=== PATIENT | female | born 1925 | race Caucasian/White ===

== ENCOUNTER 2016-07-09 08:39 | Inpatient (IN) | payer MEDICARE ==
--- NOTE | ~2016-07-09 | DS ---
Discharge Summary [facility] [address] [place]. [address] NAME: KYLEE DE PAZ : [birth year] STATUS : DIS IN PAT#: [id number] AGE: 89 ADM/REG DATE : 07/09/16 MR#: [id number] REPORT SERV DATE: 07/14/16 DICTATED BY: DATE: REPORT STATUS : Draft TRANSCRIBED BY: MODL DATE: 07/12/16 ADMISSION DATE: 07/09/2016 DISCHARGE DATE: 07/12/2016 The patient was admitted to the [facility]. Attendings, Dr. Vlad aMrtin and Gregory Choi. DISCHARGE DIAGNOSES: 1. Ischemic colitis. 2. Urinary tract infection prior to admission, status post eight days of antibiotic treatment (four days of Macrodantin, four days of ciprofloxacin and Flagyl.) No growth on cultures. 3. Generalized weakness. 4. Dementia with some increase in symptoms related to acute illness and hospitalization. 5. Hypertension. 6. Wwt-asdgvgf-ceszqepfq diabetes mellitus type 2-diet controlled. 7. Gastroesophageal reflux disease. 8. Hearing loss. 9. Acute kidney injury on chronic kidney disease, stage 2, resolved. IMAGING AND DIAGNOSTICS: 1. CT of the abdomen and pelvis on 07/09 for abdominal pain and loose stools shows acute left colitis from the splenic flexure to the rectosigmoid colon. Ischemia in the DARRELL territory may be present. A single focus of extraluminal gas versus a diverticular gas bubble present adjacent to the sigmoid colon at the level of the left adnexa. Moderate aortoiliac atherosclerosis. 2. AP and upright abdominal films on 07/10 for abdominal pain shows nonspecific gas pattern and no free air. 3. Mesenteric Doppler on 07/10, no Doppler evidence of mesenteric ischemia. PERTINENT LABORATORIES: White blood cell count on admission was 12.6, 11 at the time of discharge. Creatinine at admission 1.9, 1.1 at discharge. Hemoglobin 10.7, lactic acid level 1.2. Urinalysis showing large blood, large leukocyte esterase, nitrite positive with greater than 182 white blood cells, but only occasional bacteria. Subsequent urine culture; 30,000 colony-forming units of mixed GPC and GNR. Blood cultures x2 negative. Initial procalcitonin 16, repeat procalcitonin 1.6. BRIEF HISTORY: For full details, please see the previously dictated history of present illness by Dr. Ernie Rivers. Briefly, this is an 89-year-old lady with an acute onset of diarrhea, nausea, vomiting on 07/08. She recently had been started on Macrodantin as an outpatient for a suspected UTI. This was initiated clinically as a telephone order, but no urinalysis or culture had been obtained at that point. They attributed the symptoms to her Macrodantin as she has had intolerance of multiple antibiotics in the past. However, her diarrhea persisted after her Macrodantin had been stopped, and she began complaining of abdominal pain, and had one episode of bloody diarrhea. The family brought Discharge Summary [address] [place]. [address] NAME: KYLEE DE PAZ : [birth year] STATUS : DIS IN PAT#: [id number] AGE: 89 ADM/REG DATE : 07/09/16 MR#: [id number] REPORT SERV DATE: 07/14/16 DICTATED BY: DATE: REPORT STATUS : Draft TRANSCRIBED BY: MODL DATE: 07/12/16 her to the emergency department for evaluation. She had not had any fevers or chills, consumed any unusual foods, traveled, or had any sick contacts. She had no history of C. diff. In the emergency department, white blood cell count was noted to be 12.6 with a normal lactic acid level. Creatinine was elevated at 1.9 on prior baseline of 1.1. CT of the abdomen and pelvis revealed an acute left-sided colitis from the splenic flexure to the rectosigmoid colon suggesting potential mesenteric ischemia in the DARRELL territory. Admission was requested of the Hospitalist Service for further evaluation and stabilization. HOSPITAL COURSE: The patient was placed on IV fluids, IV antiemetics, allowed a clear liquid diet, which was slowly advanced. She was placed on empiric Levaquin and Flagyl. Mesenteric ultrasound as well as KUB were negative. The patient had no recurrence of hematochezia or diarrhea during the hospitalization. Her nausea and vomiting resolved within the first day, and she was tolerating a regular diet without recurrence of abdominal pain. A repeat urinalysis was obtained, pertinent for significant blood, leukocyte esterase, nitrites, white blood cells, but only occasional bacteria. Subsequent culture demonstrated 30,000 colony-forming units of mixed leta suggestive of contamination. Her blood cultures were negative x2 and procalcitonin down trended during the admission. She was kept on Levaquin and Flagyl for possible ischemic colitis and bacterial translocation for four days during the hospitalization and then her antibiotics were discontinued. She remained stable with no fever or recurrence of symptoms and no up trend in her white blood cell count. The antibiotics were discontinued at the request of the family who stated that they felt they were contributing to increased confusion. The patient was at her mental baseline at the time of discharge, and as it was discussed with family, she has no ongoing current indication for antibiotics having received eight days total of antibiotics for possible urinary tract infection, although the diagnosis could not be clearly made as her Macrodantin was initiated without a urinalysis or culture, and her culture here did not grow a significant amount of bacteria. She did not have any symptoms suggestive of an active urinary tract infection at the time of discharge, although it was difficult to elucidate given her baseline significant dementia. The patient was found to be generally weak during the admission, but was evaluated by Physical therapy and felt appropriate for discharge to home as she has 24/7 caregiver and equipment there. Family was in agreement with wanting to take her home rather than pursue the idea of correction facility or rehab placement. They were instructed to follow up close closely with Dr. Josef Ball within the next one to two weeks and to call his office sooner if the patient develops any fever, nausea, vomiting, abdominal pain, or recurrence of bloody diarrhea. The importance of limiting antibiotics and avoiding polypharmacy in this older patient were reviewed with family as well. They also expressed an interest in completing a [id number] order with Dr. Ball at Discharge [address] [address] NAME: KYLEE DE PAZ : [birth year] STATUS : DIS IN PAT#: [id number] AGE: 89 ADM/REG DATE : 07/09/16 MR#: [id number] REPORT SERV DATE: 07/14/16 DICTATED BY: DATE: REPORT STATUS : Draft TRANSCRIBED BY: ENRIQUE DATE: 07/12/16 followup. DISCHARGE MEDICATIONS: Include: 1. Aspirin 500 mg p.o. daily. 2. Vitamin D3 at 1000 international units p.o. daily. 3. Aricept 10 mg p.o. at bedtime. 4. Magnesium oxide 400 mg p.o. daily. 5. Zinc one tablet p.o. daily. 6. Amlodipine 5 mg p.o. daily. Thirty five minutes was spent in completion of the discharge. IRAM/ENRIQUE Gregory Choi M.D. / [id number] CC: Alma Vasquez M.D.
--- NOTE | ~2016-07-09 | HP ---
History And Physical [facility] [address] [facility] [place]. [address] NAME: KYLEE DE PAZ : [birth year] STATUS : ADM IN PAT#: [id number] AGE: 89 ADM/REG DATE : 07/09/16 MR#: [id number] REPORT SERV DATE: 07/10/16 DICTATED BY: VLAD MARTIN DATE: 07/09/16 REPORT STATUS : Draft TRANSCRIBED BY: MODL DATE: 07/09/16 DATE OF ADMISSION: 07/09/2016 CHIEF COMPLAINT: Bloody bowel movement and abdominal pain. HISTORY OF PRESENT ILLNESS: This is an 89-year-old lady with history of diverticulitis, diabetes, hypertension, chronic kidney disease, and coronary artery disease, presenting with an abdominal pain and bloody bowel movement. The patient was apparently doing fine up until yesterday around noon, when she started having acute onset of diarrhea. The patient also had a little bit of nausea and vomiting. As patient was having diarrhea, the patient started complaining of abdominal pain, and the patient started having bloody diarrhea. The patient's diarrhea actually stopped fairly soon after but the patient continued to complain of abdominal pain. The family decided to bring her to the ER in the morning. The patient has not had any obvious fevers or chills. The patient has been on antibiotics recently for urinary tract infection, namely Macrobid. The patient otherwise has not had any unusual food consumption. The patient has not had any traveling or any sick contacts. The patient does not have a history of C. diff. In the ER, the patient was found to be afebrile and hemodynamically stable. Initial lab evaluation was actually all very benign. The patient's white blood cell count was 12.6. The patient's lactate was 1.2. CT of the abdomen and pelvis revealed an acute left-sided colitis from splenic flexure to the rectosigmoid colon suggesting potential ischemia in the DARRELL territory. There was a single focus of extraluminal gas versus a diverticular gas bubble present adjacent to the sigmoid colon at the level of left adnexa. Internal Medicine consultation was requested for admission of the patient for further evaluation and care. REVIEW OF SYSTEMS: The patient denies any fevers or chills. Also, 14-point review of systems reviewed and negative other than mentioned above. MEDICATIONS: 1. Norvasc 5 mg p.o. daily. 2. Holli Aspirin 500 mg p.o. daily. 3. Vitamin D3 1000 units p.o. daily. 4. Aricept 10 mg p.o. at bedtime. 5. Mag-Ox 400 mg p.o. daily. 6. Macrobid 100 mg p.o. b.i.d. x7 days. 7. Zinc 1 tablet p.o. daily. ALLERGIES: 1. ALBUMIN. 2. INFLUENZA VIRUS VACCINE. 3. FAMILY REPORTS THAT THE PATIENT IS ALSO ALLERGIC TO LEVAQUIN BUT NOT CIPRO. PAST MEDICAL HISTORY: History And Physical [address] [address] NAME: KYLEE DE PAZ : [birth year] STATUS : ADM IN [facility]#: [id number] AGE: 89 ADM/REG DATE : 07/09/16 MR#: [id number] REPORT SERV DATE: 07/10/16 DICTATED BY: VLAD MARTIN DATE: 07/09/16 REPORT STATUS : Draft TRANSCRIBED BY: ENRIQUE DATE: 07/09/16 1. Diverticulitis. 2. Chronic kidney disease. 3. Diabetes type 2. 4. Hypertension. 5. GERD. 6. Mild dementia. 7. Coronary artery disease. PAST SURGICAL HISTORY: Three-vessel CABG several years ago. FAMILY HISTORY: Negative. SOCIAL HISTORY: The patient does not smoke, drink alcohol, or use any illicit drugs. The patient is at home with her son, and the patient always has at least one family member that is with her at home. At baseline, the patient is able to ambulate with either a walker or a cane. The patient is a retired registered nurse. PHYSICAL EXAMINATION: VITAL SIGNS: Temperature 98.6, blood pressure 120/59, pulse 100, respiratory rate is 18, saturating 95% on room air. NEUROLOGIC: The patient is alert, but slightly disoriented owing to her baseline dementia. The patient otherwise exhibits no focal neurologic deficits. GENERAL: The patient is awake, in mild amount of distress but otherwise cooperative. NECK: No JVD. No lymphadenopathy. Normal thyroid. CHEST: There is previous midline sternotomy scar. Otherwise, no tenderness to palpation. LUNGS: Clear to auscultation bilaterally with normal respiratory effort on room air. CARDIOVASCULAR: Regular rate and rhythm with no murmurs, rubs, or gallops, and PMI is nondisplaced. ABDOMEN: Soft, nontender, with active bowel sounds and no organomegaly. EXTREMITIES: No edema. Normal distal pulses. No calf tenderness. SKIN: Clean, dry, warm, and intact. LABORATORY DATA: Sodium is 135, potassium 4.3, chloride 97, BUN 34, creatinine 1.89, glucose 108, calcium 8.5. LFTs and lipase are benign. White blood cell count is 12.6, hemoglobin 10.7, platelets 317. Lactate was 1.2. CT of the abdomen and pelvis as mentioned earlier showed acute left-sided colitis from splenic flexure to the rectosigmoid colon suggesting the possibility of ischemia in the inferior mesenteric artery territory. ASSESSMENT AND PLAN: This is an 89-year-old lady with history of diverticulitis, diabetes, hypertension, coronary artery disease amongst many other medical conditions, presenting with a colitis. 1. Left-sided colitis, likely ischemic. What is concerning is a single focus of extraluminal gas versus a diverticular gas bubble adjacent to the sigmoid colon. 2. Chronic kidney disease, which is stable today with creatinine of 1.89. The patient's baseline renal function actually appears to be worse above 2. History And Physical [address] [address] NAME: KYLEE DE PAZ : [birth year] STATUS : ADM IN [facility]#: [id number] AGE: 89 ADM/REG DATE : 07/09/16 MR#: [id number] REPORT SERV DATE: 07/10/16 DICTATED BY: VLAD MARTIN DATE: 07/09/16 REPORT STATUS : Draft TRANSCRIBED BY: ENRIQUE DATE: 07/09/16 3. Diabetes type 2. 4. Hypertension. 5. History of diverticulitis. 6. Dementia. PLAN: My plan is to admit the patient under telemetry monitoring. The patient will be given generous IV fluid resuscitation. The patient will also be given supportive care with pain control and nausea control. The patient will be allowed a clear liquid diet, will be slowly advanced. I will also empirically cover her with IV antibiotics of Levaquin and Flagyl for now, and I will go ahead and check labs to include CBC, electrolytes, and lactate in the morning. I will also go ahead and check mesenteric ultrasound. Otherwise, for the rest of stable past medical conditions, including hypertension, diabetes, chronic kidney disease, et al, I will continue home medications. Standard DVT prophylaxis. The patient is full code at this time. YSC/MODL Vlad Martin MD / [id number] CC: MD Jayson Mcneil M.D.
[~2016-07-09 08:39] MED LIST: *UNABLE3; ARICEPT10 PO; BAYER500 MG PO; FLAGYL250 MG PO; HYZAAR 50/12.51 TAB PO; IMOD PO; LEVAQUIN5T PO; LOP25 PO; MAGOX4 PO; PRILO PO; TOPXL25 PO; VITAMIN D31000 UNIT PO; ZINC PO; ZOCOR40 PO
[2016-07-09 10:01] LABS: BASOPHILS 0.1 %; BASOPHILS ABSOLUTE 0.01 10/3/uL (0.0-0.16); EOSINOPHILS 0.2 %; EOSINOPHILS ABSOLUTE 0.03 10/3/uL (0.0-0.53); ER CBC TAT 0 Hrs 05 Mins; HEMATOCRIT 31.6 % (36.0-48.0); HEMOGLOBIN 10.7 g/dL (12.0-16.0); IMMATURE GRANULOCYTES 0.4 %; IMMATURE GRANULOCYTES ABSOLUTE 0.05 10/3/uL (0.0-0.11); LYMPHOCYTES 7.7 %; LYMPHOCYTES ABSOLUTE 0.97 10/3/uL (0.67-4.30); MANUAL DIFF NO %; MEAN CORPUS HGB CONC 33.9 g/dL (32.0-36.0); MEAN CORPUSCULAR VOLUME 88.5 fL (80-100); MEAN PLATELET VOLUME 8.9 fL (9.2-13.0); MONOCYTES 9.6 %; MONOCYTES ABSOLUTE 1.21 10/3/uL (0.21-1.20); NEUTROPHILS ABSOLUTE 10.34 10/3/uL (2.02-8.40); PLATELET COUNT 317 10/3/uL (150-400); RBC DISTRIBUTION WIDTH 12.6 % (12.0-16.0); RED CELL COUNT 3.57 10/6/uL (4.0-5.6); WHITE BLOOD CELLS 12.6 10/3/uL (4.5-10.5)
[2016-07-09 10:52] LABS: A/G RATIO 0.6 (0.7-1.9); ALKALINE PHOSPHATASE 107 U/L (45-117); CALCIUM, SERUM 8.5 MG/DL (8.5-10.4); CHLORIDE, SERUM 97 MMOL/L (96-112); GLOBULIN 4.3 G/DL (2.5-4.1); GLUCOSE, SERUM 108 MG/DL (60-99); POTASSIUM, SERUM 4.3 MMOL/L (3.5-5.3); SGOT(AST) 14 U/L (5-40); SGPT(ALT) 10 U/L (5-65); SODIUM, SERUM 135 MMOL/L (135-148); TOTAL BILIRUBIN 0.4 MG/DL (0-1.2); TOTAL PROTEIN 6.9 G/DL (6.0-8.5)
[2016-07-09 10:53] LABS: ALBUMIN 2.6 G/DL (3.5-5.0); BUN (BLOOD UREA NITROGEN) 34 MG/DL (6-23); CO2 (CARBON DIOXIDE) 28 MMOL/L (24-34); CREATININE 1.89 MG/DL (0.55-1.02); GFR AFRICAN AMERICAN 27 ML/MIN (>=60); GFR NON AFRICAN AMERICAN 23 ML/MIN (>=60)
[2016-07-09] MEDS ORDERED: MAGOX4 PO (13:44)
[2016-07-09] MEDS ORDERED: VITAMIN D31000 UNIT PO (13:44)
[2016-07-09] MEDS ORDERED: NORV5 PO (13:44)
[2016-07-09] MEDS ORDERED: ZINC PO (13:44)
[2016-07-09] MEDS ORDERED: ARICEPT10 PO (13:45)
[2016-07-09] MEDS ORDERED: BAYER500 MG PO (13:45)
[2016-07-09] MEDS ORDERED: MACROBID PO (13:46)
[2016-07-09 23:00] LABS: ASCORBIC ACID (UR NOT ORDER) NEG (NEG); BILIRUBIN, URINE NEGATIVE (NEG); KETONE, URINE NEGATIVE (NEG); LEUKOCYTE ESTERASE(NOT OR LARGE (NEG); WBC (NOT ORDERED) (RFLEX) > 182 (0-5)
[2016-07-10 05:23] LABS: BASOPHILS 0.1 %; BASOPHILS ABSOLUTE 0.01 10/3/uL (0.0-0.16); EOSINOPHILS ABSOLUTE 0.22 10/3/uL (0.0-0.53); HEMOGLOBIN 9.5 g/dL (12.0-16.0); IMMATURE GRANULOCYTES 0.3 %; IMMATURE GRANULOCYTES ABSOLUTE 0.03 10/3/uL (0.0-0.11); LYMPHOCYTES 10.1 %; LYMPHOCYTES ABSOLUTE 1.12 10/3/uL (0.67-4.30); MEAN CORPUS HGB CONC 33.7 g/dL (32.0-36.0); MEAN CORPUSCULAR HEMOGLOB 29.8 pg (26.0-34.0); MEAN CORPUSCULAR VOLUME 88.4 fL (80-100); MONOCYTES 9.4 %; MONOCYTES ABSOLUTE 1.05 10/3/uL (0.21-1.20); NEUTROPHILS 78.1 %; NEUTROPHILS ABSOLUTE 8.71 10/3/uL (2.02-8.40); PLATELET COUNT 296 10/3/uL (150-400); RBC DISTRIBUTION WIDTH 12.8 % (12.0-16.0); RED CELL COUNT 3.19 10/6/uL (4.0-5.6); WHITE BLOOD CELLS 11.1 10/3/uL (4.5-10.5)
[2016-07-10 05:34] LABS: CALCIUM, SERUM 8.5 MG/DL (8.5-10.4); CHLORIDE, SERUM 103 MMOL/L (96-112); CREATININE 1.49 MG/DL (0.55-1.02); GFR AFRICAN AMERICAN 36 ML/MIN (>=60); GFR NON AFRICAN AMERICAN 31 ML/MIN (>=60); POTASSIUM, SERUM 4.1 MMOL/L (3.5-5.3); SODIUM, SERUM 137 MMOL/L (135-148)
[2016-07-10 05:36] LABS: BUN (BLOOD UREA NITROGEN) 27 MG/DL (6-23); CO2 (CARBON DIOXIDE) 22 MMOL/L (24-34); GLUCOSE, SERUM 80 MG/DL (60-99)
[2016-07-10 05:49] LABS: HEMATOCRIT 28.2 % (36.0-48.0); MANUAL DIFF NO %
[2016-07-11 08:39] LABS: HEMATOCRIT 26.9 % (36.0-48.0); MEAN CORPUS HGB CONC 33.5 g/dL (32.0-36.0); MEAN CORPUSCULAR HEMOGLOB 29.9 pg (26.0-34.0); MEAN CORPUSCULAR VOLUME 89.4 fL (80-100); MEAN PLATELET VOLUME 8.7 fL (9.2-13.0); PLATELET COUNT 301 10/3/uL (150-400); RBC DISTRIBUTION WIDTH 12.9 % (12.0-16.0); RED CELL COUNT 3.01 10/6/uL (4.0-5.6); WHITE BLOOD CELLS 10.8 10/3/uL (4.5-10.5)
[2016-07-11 08:40] LABS: MANUAL DIFF YES %
[2016-07-11 08:59] LABS: BUN (BLOOD UREA NITROGEN) 18 MG/DL (6-23); CALCIUM, SERUM 8.2 MG/DL (8.5-10.4); CHLORIDE, SERUM 107 MMOL/L (96-112); CO2 (CARBON DIOXIDE) 23 MMOL/L (24-34); CREATININE 1.38 MG/DL (0.55-1.02); GFR AFRICAN AMERICAN 39 ML/MIN (>=60); GFR NON AFRICAN AMERICAN 34 ML/MIN (>=60); GLUCOSE, SERUM 125 MG/DL (60-99); POTASSIUM, SERUM 3.6 MMOL/L (3.5-5.3); SODIUM, SERUM 139 MMOL/L (135-148)
[2016-07-12 06:33] LABS: BASOPHILS 0.3 %; BASOPHILS ABSOLUTE 0.04 10/3/uL (0.0-0.16); EOSINOPHILS 7.2 %; EOSINOPHILS ABSOLUTE 0.82 10/3/uL (0.0-0.53); HEMOGLOBIN 9.8 g/dL (12.0-16.0); IMMATURE GRANULOCYTES 0.4 %; IMMATURE GRANULOCYTES ABSOLUTE 0.05 10/3/uL (0.0-0.11); LYMPHOCYTES 9.3 %; LYMPHOCYTES ABSOLUTE 1.06 10/3/uL (0.67-4.30); MEAN CORPUSCULAR HEMOGLOB 29.4 pg (26.0-34.0); MEAN CORPUSCULAR VOLUME 89.2 fL (80-100); MEAN PLATELET VOLUME 8.8 fL (9.2-13.0); MONOCYTES ABSOLUTE 0.92 10/3/uL (0.21-1.20); NEUTROPHILS 74.8 %; NEUTROPHILS ABSOLUTE 8.55 10/3/uL (2.02-8.40); PLATELET COUNT 336 10/3/uL (150-400); RBC DISTRIBUTION WIDTH 13.1 % (12.0-16.0); RED CELL COUNT 3.33 10/6/uL (4.0-5.6); WHITE BLOOD CELLS 11.4 10/3/uL (4.5-10.5)
[2016-07-12 06:37] LABS: HEMATOCRIT 29.7 % (36.0-48.0); MANUAL DIFF NO %
[2016-07-12 06:48] LABS: BUN (BLOOD UREA NITROGEN) 13 MG/DL (6-23); CALCIUM, SERUM 8.2 MG/DL (8.5-10.4); CHLORIDE, SERUM 106 MMOL/L (96-112); CO2 (CARBON DIOXIDE) 22 MMOL/L (24-34); CREATININE 1.13 MG/DL (0.55-1.02); GFR AFRICAN AMERICAN 50 ML/MIN (>=60); GFR NON AFRICAN AMERICAN 43 ML/MIN (>=60); GLUCOSE, SERUM 71 MG/DL (60-99); SODIUM, SERUM 138 MMOL/L (135-148)
== END 2016-07-12 18:18 | disposition home or self-care (01) | DRG 394 ==
LOC: ER 08:39 → 4SO 15:51
PROVIDERS: Emergency Medicine; Hospitalist; Internal Medicine
DX: K55.9 Vascular disorder of intestine, unspecified (principal); N39.0 Urinary tract infection, site not specified; N17.9 Acute kidney failure, unspecified; E11.22 Type 2 diabetes mellitus with diabetic chronic kidney disease; F03.90 Unspecified dementia, unspecified severity, without behavioral disturbance, psychotic disturbance, mood disturbance, and anxiety; K92.1 Melena; I12.9 Hypertensive chronic kidney disease with stage 1 through stage 4 chronic kidney disease, or unspecified chronic kidney disease; I25.10 Atherosclerotic heart disease of native coronary artery without angina pectoris; Z95.1 Presence of aortocoronary bypass graft; Z88.7 Allergy status to serum and vaccine; Z88.1 Allergy status to other antibiotic agents; K21.9 Gastro-esophageal reflux disease without esophagitis; K57.90 Diverticulosis of intestine, part unspecified, without perforation or abscess without bleeding; N18.2 Chronic kidney disease, stage 2 (mild); H91.90 Unspecified hearing loss, unspecified ear; R53.1 Weakness
CPT/HCPCS: 36415; 74020; 74176; 80048; 80053; 81001; 82962; 83605; 83690; 83735; 84145; 85025; 86850; 86900; 86901; 87040; 87086; 93975; 96365; 97161-GP; 99285; A9270-GY; G8978-CK-GP; G8979-CJ-GP; J0744; J2405; J2543